=== PATIENT | male | born 1990 | race Two or more races ===

== ENCOUNTER 2022-11-21 13:31 | Emergency (ER) | payer SELFPAY ==
[2022-11-21] MEDS: EPINEPHrine 1 MG/1 ML Amp SUBCUT ONE (13:38)
[2022-11-21] MEDS: methylPREDNISolone Sodium Succinate 125 MG/2 ML SDV IM ONE (13:48)
[2022-11-21] MEDS: diphenhydrAMINE 50 MG/ML SDV IM ONE (13:50)
== END 2022-11-21 14:45 | disposition home or self-care (01) ==
LOC: VM.ED 13:31
DX: T63.441A Toxic effect of venom of bees, accidental (unintentional), initial encounter (principal); E11.9 Type 2 diabetes mellitus without complications
CPT/HCPCS: 96372; 99282; 99283; J0171; J1200; J2930